=== PATIENT | female | born 1995 | race Caucasian/White ===

== ENCOUNTER 2021-11-01 12:42 | Emergency (ER) | payer OTHER ==
[~2021-11-01] VITALS: Ht 170.2 cm; Wt 90.7 kg
[2021-11-01 12:56] VITALS: BP 139/105
[2021-11-01] MEDS ORDERED: LORAZEPAM 1 MG TABLET ONE (13:55)
[2021-11-01] MEDS ORDERED: LORAZEPAM 1 MG TABLET PO ONE (14:00)
== END 2021-11-01 14:54 | disposition home or self-care (01) ==
LOC: ER 12:49
DX: F41.1 Generalized anxiety disorder (principal); R07.89 Other chest pain; F32.A Depression, unspecified; Z86.59 Personal history of other mental and behavioral disorders; Z86.69 Personal history of other diseases of the nervous system and sense organs